=== PATIENT | female | born 1945 ===

== ENCOUNTER → 2017-05-28 | Outpatient (CLI) | payer OTHER ==
[~2017-05-28] MED LIST: AMARYL PO; CEFADROXIL500 MG PO; GLIMEPIRIDE4 MG; GLIMEPIRIDE4 MG PO; GLUCOPHAGE XR500 MG; HYZAAR 100-251 UDTAB; HYZAAR 100-251 UDTAB PO; HYZAAR 50-12.1 UDTAB; METFORMIN HCL1000 MG; METFORMIN HCL1000 MG PO; ORPH100T PO; PREMARIN2.5 MG; RELAFEN 750 MG PO; TOBREX5 ML OP; ULTRACET PO; VISTARIL25 MG PO; ZOCOR20 MG; ZOCOR20 MG PO
== END | disposition home or self-care (01) ==
LOC: LAB 06:39
DX: I10 Essential (primary) hypertension (principal); E11.9 Type 2 diabetes mellitus without complications; E03.9 Hypothyroidism, unspecified; E78.2 Mixed hyperlipidemia; M81.0 Age-related osteoporosis without current pathological fracture

== ENCOUNTER → 2017-06-11 | Outpatient (CLI) | payer OTHER | END | disposition home or self-care (01) | LOC: PPHC 11:44 | DX: H92.01 Otalgia, right ear (principal) ==

== ENCOUNTER → 2017-07-03 | Outpatient (CLI) | payer OTHER | END | disposition home or self-care (01) | LOC: LAB 12:58 | DX: Z02.79 Encounter for issue of other medical certificate (principal) ==

== ENCOUNTER 2017-10-23 06:48 | Outpatient (CLI) | payer OTHER | END 2017-10-23 07:11 | disposition home or self-care (01) | LOC: LAB 06:48 | DX: I10 Essential (primary) hypertension (principal); E11.9 Type 2 diabetes mellitus without complications; E03.8 Other specified hypothyroidism; E78.2 Mixed hyperlipidemia ==

== ENCOUNTER 2017-10-30 07:23 | Outpatient (CLI) | payer OTHER | END 2017-10-30 08:58 | disposition home or self-care (01) | LOC: MAMO-SONO 07:23 | DX: Z12.31 Encounter for screening mammogram for malignant neoplasm of breast (principal); N60.11 Diffuse cystic mastopathy of right breast; N60.12 Diffuse cystic mastopathy of left breast ==

== ENCOUNTER 2018-04-22 06:48 | Outpatient (CLI) | payer OTHER | END 2018-04-22 06:58 | disposition home or self-care (01) | LOC: LAB 06:48 | DX: I10 Essential (primary) hypertension (principal); E11.9 Type 2 diabetes mellitus without complications; E78.49 Other hyperlipidemia ==

== ENCOUNTER 2018-08-06 10:52 | Outpatient (CLI) | payer OTHER | END 2018-08-06 11:03 | disposition home or self-care (01) | LOC: LAB 10:52 | DX: Z11.3 Encounter for screening for infections with a predominantly sexual mode of transmission (principal) ==

== ENCOUNTER 2018-09-20 08:44 | Outpatient (CLI) | payer OTHER | END 2018-09-20 10:00 | disposition home or self-care (01) | LOC: LAB 08:44 | DX: I10 Essential (primary) hypertension (principal); E11.9 Type 2 diabetes mellitus without complications; E03.8 Other specified hypothyroidism; E78.2 Mixed hyperlipidemia; M81.0 Age-related osteoporosis without current pathological fracture ==

== ENCOUNTER 2018-09-26 07:07 | Outpatient (CLI) | payer OTHER | END 2018-09-26 07:09 | disposition home or self-care (01) | LOC: TOM 07:07 | DX: R10.84 Generalized abdominal pain (principal) | CPT/HCPCS: 74177; Q9965 ==

== ENCOUNTER → 2018-10-25 10:41 | Outpatient (CLI) | payer OTHER | END | disposition home or self-care (01) | LOC: LAB 10:41 | DX: E55.9 Vitamin D deficiency, unspecified (principal) ==

== ENCOUNTER 2018-11-14 10:13 | Outpatient (CLI) | payer OTHER | END 2018-11-14 10:37 | disposition home or self-care (01) | LOC: MAMO-SONO 10:13 | DX: Z12.31 Encounter for screening mammogram for malignant neoplasm of breast (principal); Z87.898 Personal history of other specified conditions; N63.11 Unspecified lump in the right breast, upper outer quadrant ==

== ENCOUNTER 2019-03-06 09:14 | Outpatient (CLI) | payer OTHER | END 2019-03-06 09:21 | disposition home or self-care (01) | LOC: EDBD 09:14 → LAB 09:14 | DX: J11.1 Influenza due to unidentified influenza virus with other respiratory manifestations (principal) ==

== ENCOUNTER 2019-07-23 06:45 | Outpatient (CLI) | payer OTHER | END 2019-07-23 15:09 | disposition home or self-care (01) | LOC: LAB 06:45 | PROVIDERS: ATTEND Internal Medicine Cardiovascular Disease | DX: E11.9 Type 2 diabetes mellitus without complications (principal); I10 Essential (primary) hypertension; E03.8 Other specified hypothyroidism; E78.2 Mixed hyperlipidemia; Z12.11 Encounter for screening for malignant neoplasm of colon ==

== ENCOUNTER 2019-10-06 07:04 | Outpatient (CLI) | payer OTHER | END 2019-10-06 07:11 | disposition home or self-care (01) | LOC: LAB 07:04 | PROVIDERS: ATTEND Internal Medicine Cardiovascular Disease | DX: E78.2 Mixed hyperlipidemia (principal) ==

== ENCOUNTER → 2019-11-03 16:43 | Outpatient (CLI) | payer OTHER | END | disposition home or self-care (01) | LOC: PPH VACUNA 16:43 | DX: Z23 Encounter for immunization (principal) | CPT/HCPCS: 90688; G0008 ==

== ENCOUNTER 2019-11-18 14:04 | Outpatient (CLI) | payer OTHER | END 2019-11-18 14:15 | disposition home or self-care (01) | LOC: MAMO-SONO 14:04 | PROVIDERS: ATTEND Obstetrics & Gynecology | DX: Z12.31 Encounter for screening mammogram for malignant neoplasm of breast (principal); N60.11 Diffuse cystic mastopathy of right breast ==